=== PATIENT | male | born 1995 | race American Indian/Alaskan Native ===

== ENCOUNTER 2017-02-16 14:13 | Emergency (ER) | payer MEDICAID ==
[2017-02-16] MEDS ORDERED: Ibuprofen 600 MG Tab PO ONE (14:47)
--- NOTE | 2017-02-16 14:52 | EDM.PDOC ---
ED HPI GENERAL MEDICAL PROBLEM - General Chief Complaint: ENT Problem Stated Complaint: [id number] HURT NOSE PLAYING BASKETBALL Time Seen by Provider: 02/16/17 14:40 Source of Information: Reports: Patient History Limitations: Reports: No Limitations - History of Present Illness INITIAL COMMENTS - FREE TEXT/NARRATIVE: Patient comes emergency Department today with complaints of nasal bone injury. Just prior to arrival patient was playing basketball when when he was struck on the bridge of the nose with an elbow. He did not get knocked out. He noted that his nose is not straight as it was before. He denies any difficulty breathing. He denies a bloody nose. He denies any other injury to his face. Nose Pain Score (Numeric/FACES): 8 - Related Data Allergies Allergy/AdvReac Type Severity Reaction Status Date / Time No Known Allergies Allergy Verified 02/16/17 14:25 Home Meds: Home Meds . [No Known Home Meds] 02/16/17 [History] Past Medical History HEENT History: Reports: None Cardiovascular History: Reports: None Respiratory History: Reports: None Gastrointestinal History: Reports: None Genitourinary History: Reports: None Musculoskeletal History: Reports: None Neurological History: Reports: None Psychiatric History: Reports: None Endocrine/Metabolic History: Reports: None Hematologic History: Reports: None Immunologic History: Reports: None Oncologic (Cancer) History: Reports: None Dermatologic History: Reports: None - Infectious Disease History Infectious Disease History: Reports: None - Past Surgical History Head Surgeries/Procedures: Reports: None Social & Family History - Tobacco Use Smoking Status *Q: Current Every Day Smoker Years of Tobacco use: 2 Packs/Tins Daily: 0.5 Second Hand Smoke Exposure: No - Caffeine Use Caffeine Use: Reports: Soda - Recreational Drug Use Recreational Drug Use: No ED ROS ENT - Review of Systems Review Of Systems: ROS reveals no pertinent complaints other than HPI. ED EXAM, ENT - Physical Exam Exam: See Below Exam Limited By: No Limitations General Appearance: Alert, WD/WN, No Apparent Distress Eye Exam: Bilateral Eye: Normal Inspection Ears: Normal External Exam, Normal Canal, Hearing Grossly Normal, Normal TMs Nose: No Blood, Clear Rhinorrhea, Nasal Deformity (Mid bridge of the nose is minimally laterally displaced to the right.), Nasal Tenderness (Bridge of the nose), Septal Deformity (The septum appears to be laterally displaced to the right minimally.). No: Nasal Discharge, Nasal Swelling, Nasal Ecchymosis, Foreign Body, Septal Hematoma, Septal Performation, Active Bleeding, Dried Blood Mouth/Throat: Normal Inspection, Normal Gums, Normal Lips, Normal Oropharynx, Normal Teeth. No: Bleeding Head: Atraumatic (Except for deformity to the bridge of the nose), Normocephalic Neck: Normal Inspection, Supple, Non-Tender, Full Range of Motion, Other ( Multiple ecchymotic regions along the neck which he relates to "Hickey's" from his girlfriend.). No: Lymphadenopathy (L), Lymphadenopathy (R) Respiratory/Chest: No Respiratory Distress, Lungs Clear Cardiovascular: Normal Peripheral Pulses, Regular Rate, Rhythm Neurological: Alert, Oriented, CN II-XII Intact, Normal Cognition Psychiatric: Normal Affect, Normal Mood Skin: Warm, Dry, Intact, Normal Color, No Rash Course - Vital Signs Last Recorded V/S: Last Vital Signs Temp 36.6 C 02/16/17 14:21 Pulse 108 H 02/16/17 14:21 Resp 16 02/16/17 14:21 BP 127/96 H 02/16/17 14:21 Pulse Ox 100 02/16/17 14:21 - Orders/Labs/Meds Meds: Medications Discontinued Medications Generic Name Dose Route Start Last Admin Trade Name Ivet PRN Reason Stop Dose Admin Ibuprofen 600 mg 02/16/17 14:47 02/16/17 15:06 Motrin PO 02/16/17 14:48 600 mg ONETIME ONE Administration - Radiology Interpretation Free Text/Narrative:: X-ray of the nasal bone. Per radiology. Lucency in the nasal bone may represent nondisplaced nasal fracture. Departure - Departure Time of Disposition: 15:29 Disposition: Home, Self-Care 01 Clinical Impression: Nasal bone fracture Qualifiers: Encounter type: initial encounter Fracture type: closed Qualified Code(s): S02.2XXA - Fracture of nasal bones, initial encounter for closed fracture - Discharge Information Instructions: Nasal Fracture, [id number] Forms: ED Department Discharge Additional Instructions: Lots of ice to the nose over the next 72 hours. Tylenol and or ibuprofen as needed for pain. Return to the ED if new or worsening symptoms. Do not spray or place anything into the nose other than saline spray 2 sprays each nostril twice daily until follow up with ENT. Follow up with ENT or maxillofacial trauma surgeon in the next 7 days. - Assessment/Plan Assessment:: Nasal bone fracture without displacement. Plan: Lots of ice to the nose over the next 72 hours. Tylenol and or ibuprofen as needed for pain. Return to the ED if new or worsening symptoms. Do not spray or place anything into the nose other than saline spray 2 sprays each nostril twice daily until follow up with ENT. Follow up with ENT or maxillofacial trauma surgeon in the next 7 days.
== END 2017-02-16 15:42 | disposition home or self-care (01) ==
LOC: DL.ED 14:13
DX: S02.2XXA Fracture of nasal bones, initial encounter for closed fracture (principal); F17.210 Nicotine dependence, cigarettes, uncomplicated; W51.XXXA Accidental striking against or bumped into by another person, initial encounter; Y93.67 Activity, basketball
CPT/HCPCS: 70160; 99283; A9270